=== PATIENT | female | born 1945 | race Caucasian/White ===

== ENCOUNTER → 2017-12-29 | Day surgery (SDC) | payer MEDICARE, BC ==
[~2017-12-29] MED LIST: Lidocaine 1% 20 ML MDV ONE
--- NOTE | 2017-12-29 14:44 | OR ---
DATE OF OPERATION: 12/29/2017 PREOPERATIVE DIAGNOSIS: VENOUS INSUFFICIENCY WITH PAINFUL VARICOSITIES. POSTOPERATIVE DIAGNOSIS: VENOUS INSUFFICIENCY WITH PAINFUL VARICOSITIES. SURGEON: Arthur Canales MD PROCEDURE: ENDOVENOUS ABLATION, RIGHT GREAT SAPHENOUS VEIN. ANESTHESIA: Local with tumescent. COMPLICATIONS: None. SPECIMEN: None. FINDINGS: Successful endovenous ablation, great saphenous vein. INDICATIONS: The patient has documented saphenofemoral insufficiency via ultrasound. She suffers from painful varicosities and has elected to proceed with endovenous ablation. DESCRIPTION OF PROCEDURE: The patient was brought to the operating room site, and the insufficient saphenous vein was mapped via ultrasound and diagrammed on the overlying skin along with the access site just below the knee. The entire limb was prepped and draped in sterile fashion. The patient was placed in reverse Trendelenburg position. Local anesthesia was instilled at the access site. Vein was accessed under ultrasound guidance using the Seldinger technique. After needle inserted into the vein, guidewire was introduced through the needle. The needle was removed. A small incision was made with an 11 blade scalpel. The needle was exchanged with a 6-Lao sheath easily placed into the vein and secured via skin tension. Guidewire was removed. The sheath was flushed. Radiofrequency probe was placed into the vein through the sheath and positioned approximately 2.1 cm distal to the saphenofemoral junction under ultrasound guidance, keeping the catheter tip just inferior to the superficial epigastric vein to preserve flow. After probe position verified via ultrasound, tumescent anesthesia was infiltrated under ultrasound guidance precisely into the perivenous compartment along the length of the vein from the entry site to the saphenofemoral junction, achieving a nice halo effect. The patient was then placed back in Trendelenburg position to exsanguinate the superficial system. Radiofrequency probe position confirmed again with ultrasound and under direct external compression along the length of the heating element. Radiofrequency energy was applied. The vein was segmentally ablated by heating a 7 cm segment and indexing the catheter forward 6.5 cm until treatment length complete. Device temperature was maintained at 120 degrees Celsius with an initial power level of 40 beckham, dropping below 20 for each treatment. Total treatment time was 2 minutes and 20 seconds with 7 radiofrequency cycles. A total of 350 mL of tumescent was used. Repeat ultrasound of the vein showed successful treatment. The catheter and the sheath were withdrawn. Hemostasis was achieved with direct pressure. After hemostasis was achieved, the skin incision was closed with a bandage and compression wrap from the level of the foot to the groin. The patient was stable in the recovery room. VIRAL/GAYATHRI /[id number]
== END ==
LOC: CC.SDS 07:51
PROVIDERS: ATTEND Family Medicine
DX: I83.811 Varicose veins of right lower extremity with pain (principal); I87.2 Venous insufficiency (chronic) (peripheral)
CPT/HCPCS: 36475; A4216

== ENCOUNTER → 2018-01-05 | Day surgery (SDC) | payer MEDICARE, BC ==
--- NOTE | 2018-01-05 13:29 | OR ---
DATE OF OPERATION: 01/05/2018 PREOPERATIVE DIAGNOSIS: VENOUS INSUFFICIENCY WITH PAINFUL VARICOSITIES. POSTOPERATIVE DIAGNOSIS: VENOUS INSUFFICIENCY WITH PAINFUL VARICOSITIES. SURGEON: Arthur Canales MD PROCEDURE: ERAN, LEFT GSV. ANESTHESIA: Local with tumescent. COMPLICATIONS: None. SPECIMEN: None. FINDINGS: Successful ERAN, left GSV. INDICATIONS: The patient has documented saphenofemoral insufficiency with painful varicosities. She elects to proceed with endovascular ablation. DESCRIPTION OF PROCEDURE: The patient was brought to the operating room site and insufficient saphenous vein was mapped via ultrasound and diagrammed on the overlying skin along with the depth and location of the vein to be accessed. The entire limb was prepped and draped in sterile fashion. The patient was placed in reverse Trendelenburg position. Local anesthesia was instilled over the access site. The vein was accessed via ultrasound and Seldinger technique with a guidewire introduced through the needle. The needle was removed. A small incision was made with an 11 blade scalpel. A 6-[place] sheath was then placed over the wire and secured in position by skin tension into the greater saphenous vein. The guidewire was removed. The sheath was flushed and radiofrequency probe was placed into the vein through the sheath and positioned approximately 2 cm distal to the saphenofemoral junction under ultrasound guidance. After probe position was again verified via ultrasound, tumescent anesthesia was infiltrated under ultrasound guidance into the perivenous compartment along the length of the vein from the entry site to the saphenofemoral junction until a nice halo was achieved around the vein. The patient was placed back in Trendelenburg position to exsanguinate the superficial venous system. Probe position again confirmed with ultrasound, and with direct external compression along the length of the heating element, radiofrequency energy was applied. The vein was ablated heating a 7 cm segment, indexing the catheter forward to 6.5 cm until treatment length complete. Device temperature was kept at 120 degrees Celsius with an initial power level of 40 beckham dropping to below 20 for each treatment. Total treatment time was 2 minutes and 40 seconds with 8 radiofrequency cycles. A total of 500 mL of tumescent anesthesia was used. Repeat ultrasound confirmed successful treatment. The catheter and sheath were withdrawn and hemostasis was achieved with direct pressure. The skin incision was closed with a bandage. A compression wrap was then placed from the level of the foot to the groin. The patient was stable in the recovery room. TAWANDA /[id number]
== END ==
LOC: CC.SDS 10:03
PROVIDERS: ATTEND Family Medicine
DX: I83.812 Varicose veins of left lower extremity with pain (principal); I87.2 Venous insufficiency (chronic) (peripheral)
CPT/HCPCS: 36475; A4216

== ENCOUNTER → 2022-04-18 | Day surgery (SDC) | payer MEDICARE, BC ==
[~2022-04-18] MED LIST changes: -Lidocaine 1% 20 ML MDV ONE; +Propofol 200 MG/20 ML SDV ONE; +fentaNYL 50 MCG/ML SDV ONE
[2022-04-18] MEDS: Lactated Ringers 1,000 ML IV SCH (07:25)
== END ==
LOC: CC.SDS 06:57
PROVIDERS: ATTEND Family Medicine
DX: Z12.11 Encounter for screening for malignant neoplasm of colon (principal); D12.3 Benign neoplasm of transverse colon; D12.5 Benign neoplasm of sigmoid colon; K52.9 Noninfective gastroenteritis and colitis, unspecified; K64.4 Residual hemorrhoidal skin tags; Z80.0 Family history of malignant neoplasm of digestive organs; F32.A Depression, unspecified; E78.5 Hyperlipidemia, unspecified; I10 Essential (primary) hypertension; E11.9 Type 2 diabetes mellitus without complications; Z79.84 Long term (current) use of oral hypoglycemic drugs; Z79.4 Long term (current) use of insulin; Z79.899 Other long term (current) drug therapy
CPT/HCPCS: 82947; 88305; J2704; J3010; J7120